=== PATIENT | male | born 1945 | race Caucasian/White ===

== ENCOUNTER 2019-09-01 06:16 | Inpatient (IN) | payer MEDICARE, MEDICAID ==
[~2019-09-01] VITALS: Ht 170.2 cm; Wt 65.8 kg
[2019-09-01] VITALS (24 sets, daily range): BP systolic 102–153; BP diastolic 56–81
[2019-09-01] MEDS ORDERED: LORA10TA7 PO (08:18)
[2019-09-01] MEDS ORDERED: DONE5TAB7 PO (08:18)
[2019-09-01] MEDS ORDERED: COR6 PO (08:18)
[2019-09-01] MEDS ORDERED: OMEP20CA14 PO (08:18)
[2019-09-01] MEDS ORDERED: FLOV11 IH (08:18)
[2019-09-01] MEDS ORDERED: MONT10TA21 PO (08:18)
[2019-09-01] MEDS ORDERED: MECL-159 PO (08:18)
[2019-09-01] MEDS ORDERED: ATOR20TA PO (08:18)
[2019-09-01] MEDS ORDERED: ALBU18HF2 IH (08:18)
[2019-09-01] MEDS ORDERED: HYDR-4135 PO (08:18)
[2019-09-01] MEDS ORDERED: PRAS10TA6 PO (08:18)
[2019-09-01] MEDS ORDERED: NITR0.4T SL (08:18)
[2019-09-01] MEDS ORDERED: ASPI-1497 PO (08:18)
[2019-09-01] MEDS ORDERED: LIDOCAINE HCL 1% 20ML VIAL (Pyxis) INJ ONE (08:31)
[2019-09-01] MEDS ORDERED: MIDAZOLAM HCL 2 MG/2 ML VIAL ONE (08:31)
[2019-09-01] MEDS ORDERED: IODIXANOL 320MG/ML 100 ML BOTTLE IV ONE ×2 (08:31→09:44)
[2019-09-01] MEDS ORDERED: FENTANYL CITRATE/PF 50MCG/ML 2ML VIAL ONE (08:31)
[2019-09-01] MEDS ORDERED: IOHEXOL-300 100 ML BOTTLE ONE (09:16)
[2019-09-01] MEDS ORDERED: NICARDIPINE 100MCG/ML 10ML VIAL (CATH LAB) IV ONE (09:33)
[2019-09-01] MEDS ORDERED: HEPARIN SODIUM 1,000 UNIT/1ML VIAL IV ONE (09:33)
[2019-09-01] MEDS ORDERED: NITROGLYCERIN 50MCG/ML 10ML VIAL (CATH LAB) IV ONE (09:33)
[2019-09-01] MEDS ORDERED: TICAGRELOR 90 MG TABLET PO ONE (09:56)
[2019-09-01] MEDS ORDERED: ASPIRIN 325MG EC TABLET PO ONE (09:56)
[2019-09-01] MEDS ORDERED: ACETAMINOPHEN 325MG TABLET PO PRN (10:15)
[2019-09-01] MEDS ORDERED: ONDANSETRON HCL 4MG/2ML INJ IV PRN (10:15)
[2019-09-01] MEDS ORDERED: ATROPINE SULFATE 1MG/10ML SYR IV PRN (10:15)
[2019-09-01] MEDS ORDERED: ALBUTEROL 6.7GM HFA INHALER INH PRN (12:45)
[2019-09-01] MEDS ORDERED: NITROGLYCERIN 0.4MG TABLET SL SL PRN (12:45)
[2019-09-01] MEDS ORDERED: ALBUTEROL (0.083%) 2.5MG/3ML NEB HHN PRN (13:00)
[2019-09-01] MEDS: LORATADINE 10MG TABLET PO SCH (13:43)
[2019-09-01] MEDS: HYDRALAZINE HCL 50MG TABLET PO SCH ×2 (13:43→22:00)
[2019-09-01] MEDS ORDERED: MONTELUKAST SODIUM 10MG TABLET PO SCH (17:00)
[2019-09-01] MEDS ORDERED: SODIUM CHLORIDE 0.9% 500 ML IV ONE (19:00)
[2019-09-01 20:40] LABS: BASOPHILS % 1.2 % (0.0-2.0); EOSINOPHILS % 5.9 % (0.0-5.0); HEMATOCRIT. 41.5 % (42.0-52.0); HEMOGLOBIN. 14.4 g/dL (14.0-18.0); LYMPHOCYTES % 24.6 % (20.0-50.0); MEAN CORPUSCULAR HEMOGLOBIN 29.5 pg (28.0-32.0); MEAN CORPUSCULAR VOLUME 84.9 fL (80.0-94.0); MEAN PLATELET VOLUME 7.8 fl (7.4-10.4); NEUTROPHILS % 59.3 % (40.0-76.0); PLATELET 171 x1000/uL (130-400); RED BLOOD CELL COUNT 4.89 mill/uL (4.7-6.1); RED CELL DISTRIBUTION WIDTH 12.9 % (11.6-14.6)
[2019-09-01] MEDS ORDERED: ATORVASTATIN CALCIUM 20MG TABLET PO SCH (21:00)
[2019-09-01] MEDS: TICAGRELOR 90 MG TABLET PO SCH (21:14)
[2019-09-02] VITALS (7 sets, daily range): BP systolic 94–129; BP diastolic 51–86
[2019-09-02] MEDS: HYDRALAZINE HCL 50MG TABLET PO SCH (06:00)
[2019-09-02] MEDS ORDERED: OMEPRAZOLE 20MG CAPSULE EXTENDED RELEASE PO SCH (06:50)
[2019-09-02 07:46] LABS: BASOPHILS % 1.1 % (0.0-2.0); EOSINOPHILS % 4.5 % (0.0-5.0); HEMATOCRIT. 43.7 % (42.0-52.0); HEMOGLOBIN. 15.1 g/dL (14.0-18.0); MEAN CORPUSCULAR HEMOGLOBIN 29.4 pg (28.0-32.0); MEAN CORPUSCULAR VOLUME 84.9 fL (80.0-94.0); MEAN PLATELET VOLUME 7.7 fl (7.4-10.4); MONOCYTES % 8.2 % (2.0-8.0); NEUTROPHILS % 60.2 % (40.0-76.0); PLATELET 184 x1000/uL (130-400); RED BLOOD CELL COUNT 5.14 mill/uL (4.7-6.1); RED CELL DISTRIBUTION WIDTH 12.7 % (11.6-14.6)
[2019-09-02 08:12] LABS: CHLORIDE 111 mEq/L (98-107)
[2019-09-02] MEDS: TICAGRELOR 90 MG TABLET PO SCH (08:15)
[2019-09-02] MEDS: LORATADINE 10MG TABLET PO SCH (08:15)
[2019-09-02] MEDS ORDERED: ASPIRIN 81MG EC TABLET PO SCH (09:00)
[2019-09-02] MEDS ORDERED: CARVEDILOL 6.25 MG TABLET PO SCH (09:00)
[2019-09-02] MEDS ORDERED: MECLIZINE 25MG TABLET PO PRN (09:00)
[2019-09-02] MEDS ORDERED: ASPIRIN 325MG TABLET PO SCH ×2 (09:00)
[2019-09-02] MEDS ORDERED: DONEPEZIL HCL 5MG TABLET PO SCH (09:00)
== END 2019-09-02 11:10 | disposition home health service (06) | DRG 247 ==
LOC: CCL 06:16 → 3WST 06:17
PROVIDERS: ADMIT Specialist; ATTEND Specialist
PROC: 4A023N7 Measurement of Cardiac Sampling and Pressure, Left Heart, Percutaneous Approach (ICD-10-PCS; principal; 2019-09-01)
PROC: 027135Z Dilation of Coronary Artery, Two Arteries with Two Drug-eluting Intraluminal Devices, Percutaneous Approach (ICD-10-PCS; 2019-09-01)
PROC: B2111ZZ Fluoroscopy of Multiple Coronary Arteries using Low Osmolar Contrast (ICD-10-PCS; 2019-09-01)
PROC: B2151ZZ Fluoroscopy of Left Heart using Low Osmolar Contrast (ICD-10-PCS; 2019-09-01)
DX: I25.10 Atherosclerotic heart disease of native coronary artery without angina pectoris (principal); I50.22 Chronic systolic (congestive) heart failure; I11.0 Hypertensive heart disease with heart failure; E78.5 Hyperlipidemia, unspecified; J44.9 Chronic obstructive pulmonary disease, unspecified; F03.90 Unspecified dementia, unspecified severity, without behavioral disturbance, psychotic disturbance, mood disturbance, and anxiety; I25.5 Ischemic cardiomyopathy; F17.210 Nicotine dependence, cigarettes, uncomplicated; I25.2 Old myocardial infarction; Z79.02 Long term (current) use of antithrombotics/antiplatelets; Z82.49 Family history of ischemic heart disease and other diseases of the circulatory system; Z79.82 Long term (current) use of aspirin; Z82.3 Family history of stroke; Z79.899 Other long term (current) drug therapy
CPT/HCPCS: 36415; 80048; 85025; 85347; 92928; 92929; 93005; 93458; C1769; C1874; C1887; C1893; J1644; J2250; J3010; J3490; Q9967; J8499